=== PATIENT | male | born 1995 | race Two or more races ===

== ENCOUNTER 2018-04-09 22:20 | Emergency (ER) | payer SELFPAY ==
[~2018-04-09] VITALS: Ht 175.3 cm; Wt 83.9 kg
[2018-04-09 22:24] VITALS: BP 128/84
--- NOTE | 2018-04-09 23:12 | NUR ---
CALLED PT IN [place], NO RESPONSE
--- NOTE | 2018-04-09 23:42 | NUR ---
CALLED PT IN [place], NO RESPONSE
--- NOTE | 2018-04-09 23:50 | NUR ---
CALLED PT IN [place], NO RESPONSE
== END 2018-04-09 23:51 | disposition home or self-care (01) ==
LOC: ER 22:24
DX: Z53.21 Procedure and treatment not carried out due to patient leaving prior to being seen by health care provider (principal)
CPT/HCPCS: A4606; Z7610